=== PATIENT | female | born 1985 | race Caucasian/White ===

== ENCOUNTER 2016-09-25 01:13 | Emergency (ER) | payer MEDICAID, OTHER ==
[2016-09-25 01:44] VITALS: BMI 30.7
[2016-09-25 01:52] VITALS: BP 119/73; PULSE 97; RESP 18; TEMP 99.2; O2SAT 100
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
--- NOTE | 2016-09-25 11:07 | RAD ---
PROCEDURE: Radiographs of the Lumbar Spine. HISTORY: rt. posterior back pain COMPARISON: No prior. FINDINGS: BONES: Normal alignment. No listhesis. No fracture. DISC SPACES: Unremarkable. OTHER FINDINGS: IUD identified. IMPRESSION: No acute findings related to/accounting for the clinical presentation. Concordant results with the preliminary interpretation rendered by the emergency department physician procedure.
== END 2016-09-25 04:00 | disposition home or self-care (01) ==
LOC: ED 01:13
DX: S16.1XXA Strain of muscle, fascia and tendon at neck level, initial encounter (principal); V49.59XA Passenger injured in collision with other motor vehicles in traffic accident, initial encounter; Y92.410 Unspecified street and highway as the place of occurrence of the external cause; M54.5 Low back pain
CPT/HCPCS: 70450; 72110; 96372; 99283; J1885

== ENCOUNTER 2016-09-29 01:21 | Emergency (ER) | payer MEDICAID, OTHER ==
[2016-09-29 01:21] VITALS: BMI 30.7
[2016-09-29 02:53] VITALS: RESP 18; TEMP 98.5
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
[2016-09-29] MEDS ORDERED: Oxycodone/Acetaminophen 5/325 mg Tab PO STA (03:20)
[2016-09-29 04:42] VITALS: BP 134/69; PULSE 80; O2SAT 99
--- NOTE | 2016-09-29 09:28 | RAD ---
PROCEDURE: Right Hip and pelvis Radiographs. HISTORY: pain COMPARISON: None. FINDINGS: BONES: Normal. No fracture. JOINTS: Normal. SOFT TISSUES: Normal. OTHER FINDINGS: None. IMPRESSION: Negative study
== END 2016-09-29 05:03 | disposition home or self-care (01) ==
LOC: ED 01:21
DX: M54.30 Sciatica, unspecified side (principal)
CPT/HCPCS: 73503; 96372; 99284; J1885